=== PATIENT | male | born 1955 | race Caucasian/White ===

== ENCOUNTER 2016-10-28 16:07 | Inpatient (IN) | payer OTHER ==
[~2016-10-28] VITALS: Ht 182.9 cm; Wt 84.6 kg
[~2016-10-28 16:07] MED LIST: ALFALFA1 EACH PO; AMLODIPINE BES2.5 MG PO; ASPIR 8181 M1 PO; ASPIRIN E.C.81 M2 PO; BRILINTA90 MG PO; CIALIS10 MG PO; EFFIENT10 MG PO; LIPITOR40 MG PO; LOPRESSOR25 MG PO; Lipitor PO; METOPROLOL SUCC25 MG PO; NITROGLYCERIN0.4 MG SL; NITROSTAT,NITR0.4 M1 SL; NITROSTAT0.4 MG SL; Norvasc PO; OMEPRAZOLE20 MG PO; OMEPRAZOLE40 M1 PO; OMEPRAZOLE40 MG PO; OXYCODONE PO; PERCOCET 5-3251 EACH PO; PERCOCET 7.51 TABLET PO; PROTONIX40 MG PO; TYLENOL REGULA325 MG PO; VENTOLIN HFA18 GM IH
[2016-10-28 16:33] LABS: HEMATOCRIT 32.6 % (38.0-50.0); MCH 31.1 PG (29.0-34.0); MCV 88.8 FL (86-99); MEAN PLAT.VOLUME 8.4 uM^3 (9.0-12.4); PLATELET COUNT 244 K/uL (156-360); RBC DIS.WIDTH-CV 12.8 % (11.8-14.6); RBC DIS.WIDTH-SD 41.8 % (39-53); RED BLOOD COUNT 3.67 M/uL (4.00-5.50); WHITE BLOOD COUNT 4.5 K/uL (4.1-10.2)
[2016-10-28 16:41] LABS: CHLORIDE 105 mEq/L (99-109); POTASSIUM 3.5 mEq/L (3.7-5.4); SODIUM 140 mEq/L (136-147)
[2016-10-28 16:43] LABS: GLUCOSE 108 mg/dL (70-99)
[2016-10-28 16:44] LABS: ANION GAP 10 MEQ/L (2-14)
[2016-10-28 16:47] LABS: GFR ESTIMATE (CALCULATED) > 59 mL/min/
[2016-10-28 16:48] LABS: UREA NITROGEN (BUN) 22 mg/dL (9-23)
[2016-10-28 16:55] LABS: TROP-I INTERPRETATION NEGATIVE; TROPONIN-I 0.04 ng/mL (0.0-0.30)
[2016-10-28 17:16] LABS: D-DIMER ELISA 0.26 mg/L FEU (< 0.57)
[2016-10-28] MEDS ORDERED: VENTOLIN HFA18 GM IH (18:36)
[2016-10-28] MEDS ORDERED: SAW PALMETTO160 MG PO (18:36)
[2016-10-28] MEDS ORDERED: COLOSTRUM500 MG PO (18:36)
[2016-10-28] MEDS ORDERED: ALFALFA1 EACH PO (18:36)
[2016-10-28] MEDS ORDERED: PROTONIX40 MG PO (18:36)
[2016-10-28] MEDS ORDERED: RANITIDINE HCL150 MG PO (18:37)
[2016-10-28 21:15] VITALS: BP 110/62
[2016-10-28 22:33] LABS: TROP-I INTERPRETATION NEGATIVE; TROPONIN-I 0.23 ng/mL (0.0-0.30)
[2016-10-28 23:35] VITALS: BP 109/59
[2016-10-29 04:35] VITALS: BP 116/64
[2016-10-29 05:28] LABS: EOSINOPHIL (%) 1.8 % (0-5); EOSINOPHIL COUNT 0.1 K/uL (0-0.3); HEMATOCRIT 33.2 % (38.0-50.0); IMMATURE GRANULOCYTE (%) 0.2 % (0.0-0.7); INSTRUMENT ABS NEUTROPHIL CT 3.8 K/uL; LYMPHOCYTE COUNT 0.7 K/uL (1.0-2.8); MCHC 34.9 G/DL (30.0-36.0); MCV 91.5 FL (86-99); MONOCYTE (%) 9.1 % (3-12); MONOCYTE COUNT 0.5 K/uL (0-0.8); NEUTROPHIL (%) 75.4 % (45-76); NEUTROPHIL COUNT 3.8 K/uL (1.8-6.4); PLATELET COUNT 221 K/uL (156-360); RBC DIS.WIDTH-CV 13.1 % (11.8-14.6); RBC DIS.WIDTH-SD 44.1 % (39-53); RED BLOOD COUNT 3.63 M/uL (4.00-5.50)
[2016-10-29 06:08] LABS: TROP-I INTERPRETATION INDETERMINATE; TROPONIN-I 0.38 ng/mL (0.0-0.30)
[2016-10-29 09:07] VITALS: BP 126/70
[2016-10-29 11:35] VITALS: BP 110/59
[2016-10-29 13:02] LABS: PROTHROMBIN TIME 10.3 (9.2-11.2); PTT 28.7 (25-32)
[2016-10-30 09:00] VITALS: BP 111/72
[2016-10-30 12:00] VITALS: BP 119/64
[2016-10-30 12:02] LABS: ANION GAP 8 MEQ/L (2-14); CHLORIDE 111 MEQ/L (99-109); SAMPLE HEMOLYSIS CHECK 0; SAMPLE ICTERIC CHECK 0; SAMPLE LIPEMIA CHECK 0; SODIUM 142 MEQ/L (136-147)
[2016-10-30 12:08] LABS: GFR ESTIMATE (CALCULATED) > 59 mL/min/; GLUCOSE 113 mg/dL (70-99); UREA NITROGEN (BUN) 12 mg/dL (9-23)
[2016-10-30 12:36] LABS: TROP-I INTERPRETATION POSITIVE; TROPONIN-I 0.81 ng/mL (0.0-0.30)
[2016-10-30] MEDS ORDERED: RANEXA500 MG PO (13:16)
[2016-10-30] MEDS ORDERED: CLOPIDOGREL75 MG PO (13:16)
== END 2016-10-30 14:20 | disposition home or self-care (01) | DRG 281 ==
LOC: EME 16:07 → 5WEST 20:03 → EDOF 20:03 → 5WEST 20:56
PROVIDERS: Emergency Medicine; Family Medicine; Internal Medicine Cardiovascular Disease
DX: I21.4 Non-ST elevation (NSTEMI) myocardial infarction (principal); I25.110 Atherosclerotic heart disease of native coronary artery with unstable angina pectoris; I10 Essential (primary) hypertension; E78.5 Hyperlipidemia, unspecified; D64.9 Anemia, unspecified; G89.29 Other chronic pain; K21.9 Gastro-esophageal reflux disease without esophagitis; I45.2 Bifascicular block; M54.9 Dorsalgia, unspecified; I45.10 Unspecified right bundle-branch block; M19.90 Unspecified osteoarthritis, unspecified site; Z95.5 Presence of coronary angioplasty implant and graft; I25.2 Old myocardial infarction; Z79.02 Long term (current) use of antithrombotics/antiplatelets; F41.9 Anxiety disorder, unspecified
CPT/HCPCS: 71020; 80048; 84484; 85025; 85027; 85379; 85610; 85730; 93005; 93971; 99202; 99281; 99285; C1769; C1887; G0378; J1644; J2250; J3010; J3480; J7040